=== PATIENT | male | born 1995 ===

== ENCOUNTER 2024-08-03 06:45 | Emergency (ER) | payer SELFPAY ==
[~2024-08-03] VITALS: Ht 175.3 cm; Wt 85.0 kg
--- NOTE | 2024-08-03 07:38 | ED.PDOC ---
General HPI Comments 29 year old male presents to the ED with a chief complaint of LT flank pain onset today (08/03/24) around 3 hours ago. Patient states he woke up today experiencing LT flank pain, radiates to back as well as painful urination. Patient rates pain 10/10. Denies any PMHx as well as nausea, vomiting, diarrhea, chest pain, shortness of breath, dizziness, headache. No other symptoms or modifying factors present at this time. Chief Complaint: Flank Pain Time Seen by MD: 07:28 Primary Care Provider: UNKNOWN Reviewed notes: Medications, Allergies Allergies: Coded Allergies: NO KNOWN ALLERGIES (Unverified , 08/03/24) Information Source: Patient Mode of Arrival: Ambulatory Severity: Moderate Timing: Hours Duration: Since onset Prehospital treatment: None Onset: Spontaneous Symptoms: Dysuria History of: None Location: (L)Flank Penile discharge: None associated signs and symptoms: Flank Pain, Back Pain, Dysuria Past Medical History PAST MEDICAL HISTORY: Denies Surgical History: Denies all surgeries Family History Family History: Reviewed,noncontributory to illness, No family hx of Cancer, No family hx of DM, No family hx of Heart hong, No family hx of HTN, No family hx ofKidney hong, No family hx of Liver hong, No family hx of Lung hong, No family hx of Stroke Social History Smoker: Non-Smoker Alcohol: Denies ETOH Use Drugs: Denies Drug Use Lives In: Home Constitutional: denies: chills, diaphoresis, fatigue, fever, malaise, sweats, weakness, others EENTM: denies: blurred vision, double vision, ear bleeding, ear discharge, ear drainage, ear pain, ear ringing, eye pain, eye redness, hearing loss, mouth pain, mouth swelling, nasal discharge, nose bleeding, nose congestion, nose pain, photophobia, tearing, throat pain, throat swelling, voice changes, others Respiratory: denies: cough, hemoptysis, orthopnea, SOB at rest, shortness of breath, SOB with excertion, stridor, wheezing, others Cardiovascular: denies: chest pain, dizzy spells, diaphoresis, Dyspnea on exertion, edema, irregular heart beat, left arm pain, lightheadedness, palpitations, PND, syncope, others Gastrointestinal: denies: abdomen distended, abdominal pain, blood streaked bowels, constipated, diarrhea, dysphagia, difficulty swallowing, hematemesis, melena, nausea, poor appetite, poor fluid intake, rectal bleeding, rectal pain, vomiting, others Genitourinary: reports: dysuria, flank pain; denies: burning, frequency, hematuria, incontinence, penile discharge, penile sore, pain, testicle pain, testicle swelling, urgency, others Neurological: denies: dizziness, fainting, headache, left sided numbness, left sided weakness, numbness, paresthesia, pre-existing deficit, right sided numbness, right sided weakness, seizure, speech problems, tingling, tremors, weakness, others Musculoskeletal: reports: back pain; denies: gout, joint pain, joint swelling, muscle pain, muscle stiffness, neck pain, others Integumetry: denies: bruises, change in color, change in hair/nails, dryness, laceration, lesions, lumps, rash, wounds, others Allergic/Immunocompromised: denies: Difficulty Healing, Frequent Infections, Hives, Itching, others Hematologic/Lymphatic: denies: anemia, blood clots, easy bleeding, easy bruising, swollen glands, others Endocrine: denies: excessive hunger, excessive sweating, excessive thirst, excessive urination, flushing, intolerance to cold, intolerance to heat, unexplained weight gain, unexplained weight loss, others Psychiatric: denies: anxiety, bipolar disorder, depression, hopeless, panic disorder, schizophrenia, sleepless, suicidal, others All Other Systems: Reviewed and Negative Physical Exam General Appearance: Moderate Distress, Normal HEENT: Normal ENT Inspection, Pharynx Normal, TMs Normal Neck: Full Range of Motion, Non-Tender, Normal, Normal Inspection Respiratory: Chest Non-Tender, Lungs Clear, No Accessory Muscle Use, No Respiratory Distress, Normal Breath Sounds Cardiovascular: No Edema, No JVD, No Murmur, No Gallop, Normal Peripheral Pulses, Regular Rate/Rhythm Breast Exam: Deferred Gastrointestinal: No Organomegaly, Non Tender, No Pulsatile Mass, Normal Bowel Sounds, Soft Genitalia: Deferred Pelvic: Deferred Rectal: Deferred Extremities: No calf tenderness, Normal capillary refill, Normal inspection, Normal range of motion, Non-tender, No pedal edema Musculoskeletal : Apperance: Normal Neurologic: Alert, plumber and 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 Was a procedure done?: No Differential Diagnosis Kidney stone (Female): Musculoskeletal pain, Urinary obstruction, Urolithiasis X-Ray, Labs, Meds, VS Vital Signs Date Time Temp Pulse Resp B/P (MAP) Pulse Ox O2 Delivery O2 Flow Rate FiO2 08/03/24 08:59 137/86 08/03/24 08:00 76 15 137/86 (103) 98 08/03/24 08:00 76 08/03/24 07:41 98.1 72 21 150/87 (108) 98 98.1 08/03/24 07:41 Room Air* 0 21 08/03/24 07:22 98.0 71 18 125/85 (98) 96 98.0 Lab Test 08/03/24 07:45 08/03/24 07:15 Range/Units Sodium Level 141 136-145 mmol/L Potassium Level 3.7 3.5-5.1 mmol/L Chloride Level 106 98-107 mmol/L Carbon Dioxide Level 27 20-31 mmol/L Anion Gap 8 5-15 Blood Urea Nitrogen 13 9-23 mg/dL Creatinine 1.28 0.700-1.30 mg/dL Glomerular Filtration Rate Calc 78 >90 mL/min BUN/Creatinine Ratio 10.2 10.0-20.0 Serum Glucose 115 H 74-106 mg/dL Calcium Level 9.8 8.7-10.4 mg/dL Urine Color Yellow Yellow Urine Clarity Clear Clear Urine pH 8.5 5.0-9.0 Urine Specific [place] 1.039 H 1.001-1.035 Urine Protein 1+ H Negative Urine Ketones Negative Negative Urine Blood 1+ H Negative /uL Urine Nitrite Negative Negative Urine Bilirubin Negative Negative Urine Urobilinogen 8 H Negative mg/dL Urine Leukocyte Esterase Negative Negative /uL Urine RBC 15 0 - 3 /hpf Urine Microscopic WBC 2 0-3 /HPF Urine Squamous Epithelial Cells Few <5 /hpf Urine Bacteria Few H None Seen /hpf Urine Mucus Few None Seen Urine Glucose Normal Normal mg/dL Current Medications Medications (Trade) Dose Ordered Sig/Chong Route Start Time Stop Time Status Last Admin Ketorolac Tromethamine (Toradol Injection) 30 mg ONCE ONCE IV 08/03/24 07:45 08/03/24 07:46 DC 08/03/24 07:51 Sodium Chloride 1,000 ml @ 1,000 mls/hr Q1H ONCE IV 08/03/24 07:45 08/03/24 08:44 DC 08/03/24 07:51 Furosemide (Lasix Injection) 40 mg ONCE ONCE IV 08/03/24 08:45 08/03/24 08:46 DC 08/03/24 08:59 Patient alert. Came in because of flank pain. Possible kidney stone. Vitals stable. Establish intravenous access. Was given fluids. Was given Toradol. Abdomen is soft nontender. Ambulating. No leg swelling. No chest pain. No sign of sepsis. Blood in the urine. Abdomen is soft nontender. Was given prescription of Flomax Motrin. Explained to the patient. Was told to follow up with his primary care physician. Was told to come back if there is any problem. Time of 1ST Reevaluation: 07:58 Reevaluation 1ST: Improved Patient Education/Counseling: Diagnosis, Treatment, Prognosis Family Education/Counseling: No Family Present Additional Information The following tests were ordered, and results were reviewed by me: UA, BMP I discussed treatment and results with medical personnel and: Patient Comprehensive systems review obtained and negative except for what is stated in the HPI. Departure 1 Departure Time of Disposition: 07:43 Impression: Primary Impression: Kidney stone Disposition: 01 HOME / SELF CARE / HOMELESS Condition: Good e-Prescriptions Ibuprofen Micronized (MOTRIN TABLET) 600 Mg Tb 600 MG PO TID PRN for 5 Days, #15 TAB *Black box warning-NSAIDS can increase risk of PA & hypertension, GI irritation, ulceration, bleed, perferation. Do not use post cardiac surgery. Use short duration/lowest effective dose. Prov: PHIL MEZA MD 08/03/24 Tamsulosin Hcl (Flomax) 0.4 Mg Cap 1 CAP PO DAILY for 5 Days, #5 CAP 11 Refills Prov: PHIL MEZA MD 08/03/24 Discharged With: Self Critical Care Note Critical Care Time?: No Stability Stability form required: No Heart Score Heart Score: Heart Score Response (Comments) Value History N/A 0 EKG N/A 0 Age N/A 0 Risk Factors N/A 0 Troponin N/A 0 Total 0 I personally scribed for PHIL MEZA MD ([email or web address]) on 08/03/24 at 07:38. Electronically submitted by Manjeet Mccormick ([email or web address]). I personally scribed for PHIL MEZA MD ([email or web address]) on 08/03/24 at 07:48. Electronically submitted by Manjeet Mccormick ([email or web address]). PHIL MEZA MD Aug 03, 2024 07:38
[2024-08-03] MEDS: SODIUM CHLORIDE 0.9% 1,000 ML IV ONE (07:51)
[2024-08-03] MEDS: KETOROLAC TROMETH 30 MG/ML 1ML VIAL IV ONE (07:51)
[2024-08-03 08:06] LABS: Urine Bacteria FEW /hpf (None Seen); Urine Blood 1+ /uL (Negative); Urine Clarity Clear (Clear); Urine Color Yellow (Yellow); Urine Mucus FEW (None Seen); Urine Protein, UAD 1+ (Negative); Urine Specific Gravity 1.039 (1.001-1.035); Urine Squamous Epithelial Cell FEW /hpf (<5); Urine Urobilinogen 8 mg/dL (Negative); Urine WBC 2 /HPF (0-3); Urine pH 8.5 (5.0-9.0)
[2024-08-03 08:17] LABS: Chloride 106 mmol/L (98-107); Potassium 3.7 mmol/L (3.5-5.1); Sodium 141 mmol/L (136-145)
[2024-08-03 08:18] LABS: Anion Gap 8 (5-15); Carbon Dioxide 27 mmol/L (20-31)
[2024-08-03 08:19] LABS: Calcium 9.8 mg/dL (8.7-10.4)
[2024-08-03 08:23] LABS: BUN/Creatinine Ratio 10.2 (10.0-20.0); Blood Urea Nitrogen 13 mg/dL (9-23)
[2024-08-03 08:26] LABS: Glucose 115 mg/dL (74-106)
[2024-08-03] MEDS: FUROSEMIDE 40 MG/4 ML VIAL IV ONE (08:59)
[2024-08-03] MEDS ORDERED: IBU600T PO (09:32)
[2024-08-03] MEDS ORDERED: TAMS-35 PO (09:32)
[2024-08-03 10:02] VITALS: BP 131/81; PULSE 72; RESP 25; TEMP 98; O2SAT 97
== END 2024-08-03 10:08 | disposition home or self-care (01) ==
LOC: ER 06:45
DX: N20.0 Calculus of kidney (principal)
CPT/HCPCS: 36415; 80048; 81001; 96361; 96374; 96375; 99285; J1885; J1940; J7030